=== PATIENT | male | born 1940 | race Caucasian/White ===

== ENCOUNTER 2023-03-13 12:10 | Outpatient (CLI) | payer OTHER ==
--- NOTE | 2023-03-13 18:04 | Ultrasound Report ---
PROCEDURE: Retroperitoneal Limited INDICATIONS: Abdominal aortic aneurysm. TECHNIQUE: Real time scanning was performed of the aorta and iliac arteries, with image documentatio n. COMPARISON: 08/16/2022 FINDINGS: Aorta: Proximal aortic diameter measures 3.1 x 3.0 cm. Mid-aorta measures 3.1 x 3.0 cm. Distal aor tic diameter is 4.9 x 4.9 cm. Iliac arteries: Right common iliac artery measures 1.5 x 1.6 cm. Left common iliac artery measures 1.4 x 1.7 cm. IMPRESSION: Abdominal aortic aneurysm measuring up to 4.9 cm. Reviewed by: Jose Raul Aragon MD on 03/13/2023 6:02 PM PDT Approved by: Jose Raul Aragon MD on 03/13/2023 6:02 PM PDT Station ID: [id number]
== END 2023-03-13 12:11 | disposition home or self-care (01) ==
LOC: DI 12:10
PROVIDERS: ATTEND Nurse Practitioner Family
DX: I71.40 Abdominal aortic aneurysm, without rupture, unspecified (principal)

== ENCOUNTER 2023-09-03 08:58 | Outpatient (CLI) | payer OTHER | END 2023-09-03 08:59 | disposition home or self-care (01) | LOC: LAB 08:58 | PROVIDERS: ATTEND Physician Assistant Medical | DX: Z12.5 Encounter for screening for malignant neoplasm of prostate (principal) | CPT/HCPCS: 36415; 84153 ==

== ENCOUNTER 2024-07-03 10:42 | Outpatient (CLI) | payer OTHER ==
--- NOTE | 2024-07-03 16:29 | Ultrasound Report ---
PROCEDURE: [facility] (Retroperitoneal Ltd INDICATIONS: AAA TECHNIQUE: Real-time scanning was performed of the retroperitoneal organs, with image documentation. COMPARISON: Retroperitoneal ultrasound 03/13/2023 FINDINGS: Proximal mid and distal aorta measure 2.7 x 3.5 cm, the 2.6 x 2.7 cm and 5.1 x 5.1 cm respectively. I t is noted that the distal aorta previously measured 4.9 x 4.9 cm. Right common iliac artery measures 1.6 x 1.4 cm. Left common iliac artery measures 1.5 x 1.3 cm. 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 Reviewed by: Vivien Dunbar MD on 07/03/2024 4:27 PM PDT Approved by: Vivien Dunbar MD on 07/03/2024 4:27 PM PDT Station ID: [id number]
== END 2024-07-03 10:43 | disposition home or self-care (01) ==
LOC: DI 10:42
PROVIDERS: ATTEND Nurse Practitioner Primary Care
DX: I71.40 Abdominal aortic aneurysm, without rupture, unspecified (principal)